=== PATIENT | male | born 1955 | race Caucasian/White ===

== ENCOUNTER → 2023-12-04 13:52 | Outpatient (CLI) | payer OTHER, SELFPAY ==
--- NOTE | 2023-12-04 13:55 | DI.RAD.S_ITS ---
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 COMPARISON: None. FINDINGS: Surgical changes and devices: None. Lungs and pleura: No dense consolidation or pleural effusion. Lung volumes are mildly low. Mediastinum: Normal heart size Bones and chest wall: Degenerative changes. IMPRESSION: No acute radiographic abnormality. Mildly low lung volumes. Dictated by: Irineo Burks M.D. on 12/04/2023 at 16:06 Approved by: Irineo Burks M.D. on 12/04/2023 at 16:06
== END ==
LOC: RAD 13:54
PROVIDERS: Referring Provider Chiropractor; Visit Provider Chiropractor
DX: J61 Pneumoconiosis due to asbestos and other mineral fibers (principal)
CPT/HCPCS: 71046

== ENCOUNTER → 2023-12-05 14:17 | Outpatient (CLI) | payer OTHER, SELFPAY | PROVIDERS: PCP Family Medicine; Referring Provider Chiropractor; Visit Provider Chiropractor | DX: J61 Pneumoconiosis due to asbestos and other mineral fibers (principal) | CPT/HCPCS: 94060 ==

== ENCOUNTER → 2024-01-02 11:45 | Outpatient (CLI) | payer OTHER, SELFPAY | LOC: RESP 11:46 | PROVIDERS: PCP Family Medicine; Referring Provider Chiropractor; Visit Provider Chiropractor | DX: J61 Pneumoconiosis due to asbestos and other mineral fibers (principal) | CPT/HCPCS: 94010; 94729 ==